=== PATIENT | male | born 1970 | race Caucasian/White ===

== ENCOUNTER → 2024-02-03 06:32 | Day surgery (SDC) | payer OTHER, SELFPAY | LOC: GI 06:32 | PROVIDERS: ATTENDING PHYSICIAN Internal Medicine Gastroenterology | DX: Z12.11 Encounter for screening for malignant neoplasm of colon (principal); K57.30 Diverticulosis of large intestine without perforation or abscess without bleeding; K64.8 Other hemorrhoids; K21.00 Gastro-esophageal reflux disease with esophagitis, without bleeding; R12 Heartburn; Z94.0 Kidney transplant status | CPT/HCPCS: 43239; G0121; 88305 ==

== ENCOUNTER 2025-06-24 02:04 | Inpatient (IN) | payer OTHER, SELFPAY ==
[2025-06-23 20:46] VITALS: BP 136/82; BMI 27.7
[2025-06-23 20:47] VITALS: BP 136/82
[2025-06-23 21:21] LABS: Urine Character Clear (Clear)
[2025-06-23 21:25] LABS: Hematocrit 47.5 % (39.0-52.0); Hemoglobin 16.5 g/dL (13.0-18.0); Mean Corp Hgb Conc. 34.7 g/dL (33.0-37.0); Mean Corpuscular Volume 87.5 fL (80.0-94.0); Nucleated Red Blood Cells % 0 % (-); Platelet Count 133 10^3/uL (130-400); Red Cell Dist. Width 13.2 % (11.5-14.5)
[2025-06-23 21:27] LABS: Urine Squamous Cell 0-2 /LPF (Few)
[2025-06-23 21:28] LABS: Urine Red Blood Cell 0-2 /HPF (0-2); Urine White Cell 50-60 /HPF (0-5)
[2025-06-23 21:30] LABS: COVID-19 Antigen Negative (Negative)
[2025-06-23 21:37] LABS: ALT (SGPT) 33 U/L (0-50); AST (SGOT) 24 U/L (17-59); Albumin 4.6 g/dl (3.5-5.0); Alkaline Phosphatase 66 U/L (38-126); Blood Urea Nitrogen 17 mg/dl (9-20); Calcium 10.0 mg/dl (8.4-10.2); Carbon Dioxide 26 mmol/L (22-30); Chloride 99 mmol/L (98-107); Estimated Creatinine Clearance 70 ml/min; Glucose 126 mg/dl (70-99); Potassium 4.1 mmol/L (3.5-5.1); Sodium 133 mmol/L (135-145); Total Protein 7.1 g/dl (6.3-8.2); eGFR > 60.00
[2025-06-23 22:00] VITALS: BP 123/63
[2025-06-23] MEDS: NSS 1000 IV (22:03)
[2025-06-23] MEDS: ZOFRAN 4 MG IV (22:03)
[2025-06-23] MEDS: MAXIPIME 2000 MG IV (22:06)
[2025-06-23 23:00] VITALS: BP 130/73
--- NOTE | 2025-06-23 23:47 | ED.GENMED ---
History of Present Illness
General
Chief Complaint: Fever
Source: patient and spouse
Time Seen by Provider: 06/23/25 20:58
History of Present Illness
History of Present Illness:
Note:
CHIEF COMPLAINT(S)
Nausea, chills, fever, painful urination.
HISTORY OF PRESENT ILLNESS
The patient is a 55-year-old male with a history of kidney transplant performed 10 years ago at [facility] and currently on immunosuppressive therapy with tacrolimus, mycophenolate, and prednisone. He presents with nausea, chills, fever, and painful
urination that began last night. The patient reported measuring a fever of up to 102�F at home. He has been experiencing nausea upon drinking fluids and has not urinated much today due to limited fluid intake. He denies any previous history of
urinary tract infections, kidney stones, or penile discharge. He also reports not taking his morning dose of tacrolimus and having taken acetaminophen at 6:30 AM for fever management. He is on immunosuppressants, raising the concern for severe
infection or complications.
PAST MEDICAL AND SURGICAL HISTORY
Kidney transplant 10 years ago for polycystic kidney disease.
CHRONIC MEDICAL CONDITIONS SIGNIFICANTLY AFFECTING CARE
1. History of kidney transplant.
2. Currently on immunosuppressive therapy.
MEDICATIONS
1. Tacrolimus
2. Mycophenolate
3. Prednisone
REVIEW OF SYSTEMS
- General: Chills, fever up to 102�F.
- Genitourinary: Painful urination.
- Gastrointestinal: Nausea when drinking fluids.
PHYSICAL EXAM
General: Appears ill, febrile.
Skin: Warm, dry.
Head: Normocephalic, atraumatic.
Neck: Supple, trachea midline.
Eyes, Ears, Nose, Mouth and Throat: Oral mucosa moist.
Cardiovascular: Regular heart rate, no murmurs.
Respiratory: Lungs clear, respirations are non-labored.
Gastrointestinal: Abdomen soft, non-tender.
Back: No costovertebral angle tenderness.
Musculoskeletal: Normal range of motion, normal strength.
Neurological: Alert and oriented to person, place, time, and situation. No focal neurological deficit observed.
Psychiatric: Cooperative, appropriate mood & affect.
Genitourinary: Uncircumcised male, testicles non-tender.
PROBLEM LIST
- Acute Problems:
- Urinary tract infection with suspected ascending infection.
- Fever and chills.
- Nausea.
- Chronic Problems:
- History of kidney transplant.
- Immunosuppressive therapy management.
PLAN
1. Admission to the hospital for further evaluation and management given immunosuppression and potential ascension of urinary infection.
2. Initiate intravenous fluids for hydration and fever management.
3. Administer intravenous antibiotics targeting suspected urinary infection, avoiding ciprofloxacin due to renal concerns; consider a cephalosporin.
4. Obtain blood and urine cultures to determine the causative organism.
5. Provide medication for nausea control.
6. Monitor vital signs and reassess clinical status regularly.
DIFFERENTIAL DIAGNOSIS
The Differential Diagnosis includes, in no particular order and is not limited to:
1. Pyelonephritis
2. Urinary Tract Infection (UTI)
3. Prostatitis
4. Acute they interest interest oritis
5. Cystitis
6. Sepsis secondary to urinary source
7. Drug-induced fever
8. Renal abscess
9. Polycystic kidney disease complications
10. Non-infectious kidney transplant rejection
Disposition:
SUMMARY OF ENCOUNTER
A 55-year-old male with a history of kidney transplant from 10 years ago presented to the emergency department with fever and painful urination. Initial workup revealed a urinary tract infection, confirmed by urine analysis showing positive
nitrites, 50-60 WBCs, and numerous bacteria. His initial white blood cell count was elevated at 13.6 with 86% neutrophils indicating a bacterial infection. Chemistries and LFTs were within normal limits; lactic acid was also normal. Imaging of the
abdomen and pelvis identified polycystic kidneys with a mild dilation of the right ureter and elizabeth-ureteral fat stranding, consistent with a urinary tract infection. IV fluids and antibiotics were administered, resulting in some clinical
improvement. Cefepime was given as IV antibiotics.
DISPOSITION
Admit
ASSESSMENT
Urinary tract infection with possible ascending infection, considering the patients history of kidney transplant and current immunosuppressive therapy.
EMERGENCY TREATMENTS ADMINISTERED
Intravenous fluids and Cefepime
PLAN
1. Admit to hospital for further evaluation and management due to immunosuppression and potential complications from the urinary infection. 2. Continue intravenous antibiotics to treat the urinary tract infection. 3. Monitor clinical progression,
vital signs, and laboratory markers closely to assess response to treatment. 4. Obtain blood and urine cultures to identify the causative organism and tailor antibiotic therapy appropriately upon identification.
INDEPENDENT REVIEW OF LABS AND INTERPRETATION OF TESTS
My independent review of the CBC indicates leukocytosis at 13.6 with a left shift of 86% neutrophils.
My independent review of the urinalysis shows positive nitrites and 50-60 white blood cells, suggesting urinary tract infection.
My independent interpretation of the CT abdomen and pelvis reveals polycystic koi kidneys with a right lower quadrant transplanted kidney, mildly dilated right ureter, and elizabeth-ureteral fat stranding, likely related to the urinary tract
infection. No obstruction or nephrolithiasis was present.
MEDICAL DECISION MAKING
- Number and Complexity of Problems Addressed: Chronic conditions affecting care include a history of kidney transplant and immunosuppressive therapy management. Differential diagnosis includes urinary tract infection, pyelonephritis, prostatitis,
cystitis, sepsis secondary to urinary source, renal abscess, complications from polycystic kidney disease, and non-infectious kidney transplant rejection.
- Data:
- Category 1: Reviewed CBC indicating elevated white blood cell count. Reviewed urinalysis showing signs of urinary tract infection. Independently interpreted CT abdomen and pelvis.
- Category 3: Discussion of management with hospitalist upon admission regarding the continuation of care and monitoring in light of the patient�s complex medical history and current immunosuppressed state.
- Risk: Prescription drug management involving intravenous antibiotics and monitoring for potential severe infection given the patients immunosuppressed status. Decisions to escalate care through hospital admission due to complexity and potential
severity of the urinary tract infection in the context of the patients kidney transplant history.
DIAGNOSIS
N39.0 - Urinary tract infection, site not specified.
Kidney transplant
Past History
Past History
ED Past Medical History: GERD, HTN, Renal failure (Polycystic kidney disease, renal transplant January 2015.), Other (COVID-15 July 2020) and Other (polycystic kidney)
ED Past Surgical History: Cholecystectomy and Other (txp kidney)
Social History
Tobacco: Former smoker
Alcohol: None
Drug: None
Personal:
Living: with family
Employment: Employed
Family History
Family History: Other (polycystic kidney)
Phy Exam
Physical Exam
Physical Exam:
.
Course
Orders/Labs/Results
Orders:
Orders
06/23/25 20:48
EKG [Electrocardiogram (*1)] Urgent
Reason for Study: Tachycardia
EKG- Treatment ONCE
06/23/25 21:01
COVID-19 Antigen Urgent
Source: Nasal Swab
Complete Blood Count/With Diff Urgent
Comprehensive Metabolic Panel Urgent
Lactic Acid Urgent
Urinalysis Reflex To Culture Urgent
Date Specimen was Collected: 06/23/25
Time Specimen was Collected: 20:59
Urine Microscopic Reflex Cult Urgent
Blood Culture Routine
MARY KAY Source: Blood/Venous
Specimen Description:
Blood Culture Urgent
MARY KAY Source: Blood/Venous
Specimen Description:
Influenza A+B Rapid Molecular Urgent
MARY KAY Source: Nasal Swab
Specimen Description:
Urine Culture Urgent
MARY KAY Source: U
Specimen Description:
Date Specimen was Collected: 06/23/25
Time Specimen was Collected: 20:59
06/23/25 21:35
0.9% Sodium Chloride 1000 ml [Nss] 1,000 ml IV BOLUS
06/23/25 21:47
Cefepime HCl [Maxipime] 2,000 mg IV NOW STA
06/23/25 21:53
CT Abd/pel Without Iv Or Oral Urgent
Comment:
Reason For Exam: back pain, UTI, h/o kidney transplant
06/23/25 21:55
Ondansetron Injectable [Zofran] 4 mg IV NOW STA
06/23/25 23:59
Morphine Sulfate 4 mg IV NOW STA
Ondansetron Injectable [Zofran] 4 mg IV NOW STA
06/24/25 00:15
0.9% Sodium Chloride 1000 ml [Nss] 1,000 ml IV 125 mls/hr
Abnormal Lab Results
06/23/25
21:01
WBC 13.6 H 10^3/uL
(4.8-10.8)
MPV 10.9 H fL
(7.4-10.4)
Abs Immat Gran (auto) 0.1 H 10^3/uL
(0-0.05)
Absolute Neuts (auto) 11.6 H 10^3/uL
(1.4-6.5)
Absolute Lymphs (auto) 0.7 L 10^3/uL
(1.2-3.4)
Absolute Monos (auto) 1.1 H 10^3/uL
(0.1-0.6)
Neutrophils % 86.0 H %
(42.2-75.2)
Lymphocytes % 5.3 L %
(20.5-51.1)
Sodium 133 L mmol/L
(135-145)
Glucose 126 H mg/dl
(70-99)
Total Bilirubin 1.4 H mg/dl
(0.2-1.3)
Ur Occult Blood Reflex 3+ A
(Negative)
Urine Nitrite (Reflex) Positive A
(Negative)
Leukocyte Esterase Rfl 1+ A
(Negative)
Urine WBC (Reflex) 50-60 A /HPF
(0-5)
Urine Bacteria (Reflex) Many A
(Negative)
Urine Albumin (Reflex) 2+ A
(Neg - Trace)
06/23/25 21:01
06/23/25 21:01
Vital Signs
Initial and Last Documented VS:
Initial Vital Signs
Temp Pulse Resp BP Pulse Ox
101.2 F H 94 21 136/82 94
06/23/25 20:46 06/23/25 20:46 06/23/25 20:46 06/23/25 20:46 06/23/25 20:46
Last Documented Vital Signs
Temp Pulse Resp BP Pulse Ox
100.2 F 89 19 123/63 92
06/23/25 22:53 06/23/25 22:50 06/23/25 21:45 06/23/25 22:00 06/23/25 23:53
*Pulse Oximetry
SaO2: 92
Oxygen Mode of Delivery: Room air
Patient hypoxic: yes (Mild)
*[employer] Consultant Interpretation
Rate: normal
Interpretation: normal
Rhythm: sinus
*Critical Care Note
Total Time (30-74mins, 75-104mins- exclusive of procedures): 30 minutes
Update Note
Update Note:
Patient feels a little bit better but continues to have some low back pain. Again febrile but only able to take Tylenol. Will redose Tylenol at this point as he took it at home shortly before ED visit at 6:30 PM. Morphine ordered. Blood pressure
and heart rate okay
ED Attending Note
-
Portions of this chart may have been created with voice recognition software.� Occasional wrong word or��sound alike� substitutions may have occurred due to the inherent limitations of voice recognition software.
Discharge Plan
Departure
Patient Disposition: Admit
Date of Disposition: 06/23/25
Time of Disposition: 23:48
Admit to: Telemetry
Presentation/result/management discussed w/ accepting MD/DO: Hospitalist
Discharge Problem:
Acute UTI, Kidney transplanted
Prescriptions:
No Action
atorvastatin 10 MG tablet
40 mg PO HS
metoprolol tartrate 100 MG tablet
50 mg PO BID
prednisone 5 MG tablet
5 mg PO DAILY
amlodipine 10 MG tablet
10 mg PO DAILY
aspirin 81 MG tablet,chewable
81 mg PO DAILY
tacrolimus 1 MG capsule
1 mg PO BID
mycophenolate mofetil 250 mg Capsule
500 mg PO Q12H
Referrals:
UNKNOWN - PT NOT,INTERVIEWE [Family Provider]
Interventions
Interventions:
*Risk Screen - Suicide Last Done: 06/23/25 20:46
*General Assessment Last Done: 06/23/25 20:46
*Neglect/Abuse Screening Last Done: 06/23/25 20:46
*ED- Fall Risk Assessment Last Done: 06/23/25 20:46
*ED COVID-19 Vaccine History Last Done: 06/23/25 20:46
*ED Influenza Vaccine History Last Done: 06/23/25 20:46
ED- Neurological Assessment Last Done: 06/23/25 20:53
ED-Skin Assessment Last Done: 06/23/25 20:53
Discharge Date and Time
Print Language: TUNISIAN
[2025-06-24] VITALS (8 sets, daily range): BP systolic 107–137; BP diastolic 49–76; BMI 26.8
[2025-06-24] MEDS: MORPHINE SULFATE 4 MG IV (00:07)
[2025-06-24] MEDS: ZOFRAN 4 MG IV ×2 (00:07→21:58)
[2025-06-24] MEDS: TYLENOL 1000 MG PO (00:15)
[2025-06-24] MEDS: NSS 1000 IV ×4 (00:16→19:49)
--- NOTE | 2025-06-24 01:50 | HPS.HSE ---
Family Physician
-
Family Physician: INTERVIEWE UNKNOWN - PT NOT
Chief Complaint
-
Fever / Chills
History of Present Illness
Patient is a 55y M with PMH significant for polycystic kidney disease s/p renal transplant who presents to ED complaining of fevers and chills. Patient states that he woke around 2 AM today with shaking chills. He has had persistent symptoms
throughout the day which include lower back pain, diffuse muscle aches and 'foggy head' / confusion. He notes some dysuria this evening. N/V x 1 here in the ED. No sore throat or cough. No diarrhea.
No known sick contacts.
No recent changes in medications.
Medical History
Past Medical History
Past Medical History: Reports Other
Additional Past Medical History:
Polycystic Kidney Disease
Hypertension
GERD
Past Surgical History: Reports Other
Additional Past Surgical History:
Renal Transplant (2015 at [facility])
Cholecystectomy
Left Inguinal Hernia Repair
Social History
Tobacco: Former Smoker (Quit smoking 15 years ago.)
Alcohol: Occasional
Drug: None
Family History
Family History: Not pertinent
Allergies / Home Medications
Allergies reflects when Allergies were last updated in [employer].
Home Medications with original date entered in [employer]
Allergy/Medication List:
Allergies
Allergy/AdvReac Type Severity Reaction Status Date / Time
No Known Allergies Allergy Verified 06/23/25 20:52
Home Medications
amlodipine 10 mg tablet 10 mg PO DAILY 04/01/16
aspirin 81 mg chewable tablet 81 mg PO DAILY 04/01/16
atorvastatin 10 mg tablet 40 mg PO HS 04/01/16
metoprolol tartrate 100 mg tablet 50 mg PO BID 04/01/16
prednisone 5 mg tablet 5 mg PO DAILY 04/01/16
tacrolimus 1 mg capsule, immediate-release 1 mg PO BID 04/01/16
mycophenolate mofetil 250 mg capsule 500 mg PO Q12H 06/23/25
Review of Systems
-
History Source: Patient
A 12 point ROS was completed and negative except as noted: Yes
Constitutional: Reports Fever, Fatigue and Chills
EENT: Denies Sore Throat
Respiratory: Denies Cough or Trouble Breathing
Cardiac: Denies Chest Pain or Palpitations
Abdomen/GI: Reports Nausea and Vomiting; Denies Abdominal Pain, Diarrhea, Bloody Stools or Black Stools
: Reports Dysuria; Denies Frequency or Flank Pain
Musculoskeletal: Reports Muscle Pain; Denies Joint Pain
Neurological: Reports Headache; Denies Dizzy
Psych: Denies Depression or Anxiety
Physical Exam
Vital Signs
Vital Signs
Temp Pulse Resp BP Pulse Ox
98.6 F 84 29 130/73 91
06/24/25 01:29 06/24/25 01:00 06/24/25 01:00 06/23/25 23:00 06/24/25 01:00
Physical Exam
General: Other (Ill-appearing 55y M. Tactile fever.)
HEENT: Other (Dry MM. Neck supple.)
Respiratory: Clear; No Wheezes, Rales or Rhonchi
Cardiac: S1/S2 and Regular Rhythm; No Murmur
GI: Soft, Non Tender, Non Distended and Normal Bowel Sounds
Musculoskeletal: No Clubbing, No Cyanosis and No Edema
Neuro: AO x 3
Laboratory Results
-
06/23/25 21:01
06/23/25 21:01
Laboratory Results
Lactic Acid 1.2 mmol/L (0.7-2.0) 06/23/25 21:01
Total Bilirubin 1.4 mg/dl (0.2-1.3) H 06/23/25 21:01
AST 24 U/L (17-59) 06/23/25 21:01
ALT 33 U/L (0-50) 06/23/25 21:01
Alkaline Phosphatase 66 U/L (38-126) 06/23/25 21:01
Impression/Plan
-
A/P: Patient is a 55y M with PMH significant for hypertension and renal transplant who presents to ED complaining of fevers and chills that started early this AM.
Pyelonephritis
Immunocompromised State
- Admit for further evaluation and treatment.
- CT done in the ED shows mild R hydro and periureteral stranding. No evidence of stone / obstruction.
- Continue IV cefepime pending culture data.
- IVF support, antipyretics, etc.
- Follow for clinical improvement.
s/p Renal Transplant
- Followed at [facility].
- SCr is at baseline at present.
- Hold CellCept acutely and continue other usual antirejection medications.
- Treat ascending urinary infection as noted above.
- Nephrology evaluation.
Benign Hypertension
- Hold amlodipine acutely.
- Holding parameters for metoprolol to avoid hypotension.
GERD
- H2-piper BID.
DVT Prophylaxis: Lovenox
Code Status: Full
[2025-06-24] MEDS: TYLENOL 650 MG PO ×3 (03:30→15:54)
[2025-06-24] MEDS: STERILE WATER FOR INJECTION 10 ML IV ×4 (03:32→21:46)
[2025-06-24] MEDS: MAXIPIME 1000 MG IV ×4 (03:32→21:46)
[2025-06-24] MEDS: MORPHINE SULFATE 2 MG IV ×3 (04:45→19:59)
--- NOTE | 2025-06-24 04:59 | PTCARENOTE ---
Addendum entered by Mayito Will RN 06/24/25 05:57:
Temp rechecked at 0520. Temp of 102.1. POURED PIPE MAKER notified. No new orders at this time. Patient is sleeping and reports decrease in pain-See MAR.
Original Note:
Pt arrived to unit from ED at 0250. Pt ambulated to bed w/o assist-steady gait with hunched posture. Pt endorses pain at rest and with ambulation. See MAR. Temp of 101.9-See MAR. IVF maintained & IV Abx. VSS. Pt and family made aware on POC and are
agreeable at this time. Pt notified to arnold for assistance with ambulation. POURED PIPE MAKER notified regarding pain management-See MAR. Bed in lowest position and locked, call gooden within reach, pt has no further concerns at this time.
[2025-06-24 06:43] LABS: Hematocrit 43.3 % (39.0-52.0); Hemoglobin 15.1 g/dL (13.0-18.0); Mean Corp Hgb Conc. 34.9 g/dL (33.0-37.0); Mean Corpuscular Volume 88.9 fL (80.0-94.0); Platelet Count 110 10^3/uL (130-400); Red Cell Dist. Width 13.2 % (11.5-14.5)
[2025-06-24 07:08] LABS: Blood Urea Nitrogen 16 mg/dl (9-20); Calcium 9.0 mg/dl (8.4-10.2); Carbon Dioxide 23 mmol/L (22-30); Chloride 103 mmol/L (98-107); Estimated Creatinine Clearance 79 ml/min; Glucose 151 mg/dl (70-99); Potassium 4.1 mmol/L (3.5-5.1); Sodium 130 mmol/L (135-145); eGFR > 60.00
[2025-06-24] MEDS: PROGRAF 1 MG PO ×2 (08:00→19:48)
[2025-06-24] MEDS: DELTASONE 5 MG PO (08:00)
[2025-06-24] MEDS: LOW STRENGTH ASPIRIN 81 MG PO (08:00)
[2025-06-24] MEDS: PEPCID PO (08:02)
[2025-06-24] MEDS: LOPRESSOR 50 MG PO ×2 (08:41→19:48)
--- NOTE | 2025-06-24 10:48 | W.CON.NEPH ---
Consultation
-
Date/Time Consultation Requested: 06/24/2025 7 AM
Date/Time Consultation Performed: 06/24/2025 10 AM
Requesting Provider: Dr. Lares
Performing Provider: Dr. Sawant
Reason for Consultation: Hyponatremia
Medical History
-
Chief Complaint: Fever
History of Present Illness:
This is a 55-year-old gentleman who has hypertension typically controlled with a multidrug regimen, hyperlipidemia controlled on statin therapy, polycystic kidney disease with renal transplant 2014 at [facility]. He is maintained on a
triple drug regimen for immunosuppression.
He was admitted because of development of fever and chills as well as back pain and myalgias. When he came to the emergency room he had nausea and vomiting. His creatinine was 1.2 with a sodium level of 133. CT scan of the abdomen and pelvis
without intravenous contrast suggested perinephric stranding in the right transplant kidney. He did also report some dysuria yesterday though none today. He also reports malodorous urine.
Past Medical History
AD Polycystic Kidney Disease
Hypertension
GERD
Renal Transplant (01/2015 at [place]) BRETT, RLQ
Cholecystectomy
Left Inguinal Hernia Repair
Social History
Tobacco: Former Smoker
Alcohol: Occasional
Family History
ADPKD with renal transplant
Allergies / Home Medications
Allergy/AdvReac Type Severity Reaction Status Date / Time
No Known Allergies Allergy Verified 06/23/25 20:52
�Medication �Instructions �Recorded �Confirmed �Type
amlodipine 10 mg tablet 10 mg PO DAILY 04/01/16 06/23/25 History
aspirin 81 mg chewable tablet 81 mg PO DAILY 04/01/16 06/23/25 History
atorvastatin 10 mg tablet 40 mg PO HS 04/01/16 06/23/25 History
metoprolol tartrate 100 mg tablet 50 mg PO BID 04/01/16 06/23/25 History
prednisone 5 mg tablet 5 mg PO DAILY 04/01/16 06/23/25 History
tacrolimus 1 mg capsule, 1 mg PO BID 04/01/16 06/23/25 History
immediate-release
mycophenolate mofetil 250 mg 500 mg PO Q12H 06/23/25 06/23/25 History
capsule
Review of Systems
-
Fatigue nausea vomiting fever chills dysuria. No diarrhea. No chest pain or shortness of breath. No orthostasis.
Physical Exam
Vital Signs
Vital Signs
Temp Pulse Resp BP Pulse Ox
99.7 F 83 16 111/71 91
06/24/25 07:31 06/24/25 07:31 06/24/25 07:31 06/24/25 07:31 06/24/25 07:31
Lab Results
WBC 16.6 10^3/uL (4.8-10.8) H 06/24/25 06:16
RBC 4.87 10^6/uL (4.70-6.10) 06/24/25 06:16
Hgb 15.1 g/dL (13.0-18.0) 06/24/25 06:16
Hct 43.3 % (39.0-52.0) 06/24/25 06:16
Plt Count 110 10^3/uL (130-400) L 06/24/25 06:16
Sodium 130 mmol/L (135-145) L 06/24/25 06:16
Potassium 4.1 mmol/L (3.5-5.1) 06/24/25 06:16
Chloride 103 mmol/L (98-107) 06/24/25 06:16
Carbon Dioxide 23 mmol/L (22-30) 06/24/25 06:16
BUN 16 mg/dl (9-20) 06/24/25 06:16
Creatinine 1.1 mg/dL (0.7-1.3) 06/24/25 06:16
eGFR > 60.00 06/24/25 06:16
Glucose 151 mg/dl (70-99) H 06/24/25 06:16
Calcium 9.0 mg/dl (8.4-10.2) 06/24/25 06:16
Albumin 4.6 g/dl (3.5-5.0) 06/23/25 21:01
Baseline creatinine May 2025 according to patient 1.2
Last tacrolimus level according to patient [address] abdomen pelvis without contrast 06/23/2025
IMPRESSION:
1. Findings consistent with autosomal dominant polycystic kidney disease.
2. Right lower quadrant transplant kidney. There is mild fat stranding adjacent to the proximal ureter, which may be related to ascending urinary tract infection. No significant hydronephrosis of the transplanted kidney, and no perinephric fluid
collection.
3. Severe diffuse fatty infiltration of the liver.
Physical Exam
Patient is awake alert oriented and in no distress. Mood and affect were pleasant, insight and judgment were good. Pupils are equal round and reactive to light, extraocular movements are intact, sclera were anicteric. Hearing was normal, ears and
nose are intact. Oropharynx was clear. Neck was supple with trachea midline and no thyromegaly. Heart was regular rate and rhythm without rubs. Lower extremities without edema. Lungs were clear to auscultation bilaterally and with normal
excursion. Abdomen was soft, nontender, with normal active bowel sounds, and no hepatosplenomegaly. Skin was without rash and with normal turgor. No transplant tenderness in the right lower quadrant
Data Reviewed
-
Radiology: Image Personally Visualized and interpreted (Chest x-ray 06/16/2025 by my reading no acute disease low lung volume)
CT Scan: Report Reviewed by me
Medical Tests (Nuc Med, Echo etc): Image Personally Visualized and interpreted (EKG 06/23/2025 by reading normal sinus rhythm nonspecific T wave abnormality)
Labs: Labs Reviewed by me
Old Records: Reviewed
Assessment/Plan
-
Assessment
Living unrelated renal transplant January 2025 [facility] right lower quadrant [id number], baseline 1.2
UTI, possible evolving pyelonephritis of transplant kidney
Hypertension
Hyperlipidemia
Plan
Continue all immunosuppressants
Broad-spectrum antibiotics for urinary infection
Check tacrolimus level in the morning
Follow BMP
Reduce IV fluid rate
Await culture results
--- NOTE | 2025-06-24 11:20 | CM ---
chart reviewed. Spoke with patient and his son at bedside
Lives in [address] with 2 JOSE M
Independent Working from home
no DME
PCP Donnie Hogue
RX plan yes
Pharmacy [facility]
no hx of VN nor SNF
DCP is to go home with no needs
or son can drive him home
CM will continue to follow up for any dcp needs
[2025-06-24] MEDS: CELLCEPT 500 MG PO ×2 (11:49→19:47)
--- NOTE | 2025-06-24 11:56 | W.PN.UPDATE ---
Update Note
Progress Note Update
NAD
Scleral Anicteric
MMM
No JVD
CTABL
RRR, S1/S2
Soft, NT, ND, BS+
CVA tenderness
Warm, Dry
AAOx3
Calm
Pyelo with known hx of renal transplant
Check renal transplant ultrasound
IVAtb with cefepime
Bcx and Ucx follow up
IVF
Analgesics
ID consult
Nephrology consult
-Continue immunosuppresive
--Neph resume cellcept
--Tac level ordered prior to next AM dose though send out
S/p Renal transplant
Follow with [facility] transplant
Continue cellcept/tac and pred
Neph consulted
Transplant ultrasound ordered
HTN
Currently normotensivem off of BP meds
GERD
Pepcid
--- NOTE | 2025-06-24 13:57 | CON.ID ---
Consultation
-
Date/Time Consultation Requested: 06/24/2025 0850
Date/Time Consultation Performed: 06/24/2025 1357
Requesting Provider: Dr. Hawkins
Performing Provider: Dr. Ortiz
Reason for Consultation: Complicated urinary tract infection
Chief Complaint / Past History
History of Present Illness
David Bowden is a 55-year-old man being evaluated at request of Dr. Hawkins in regards to a complicated urinary tract infection. History is obtained from chart review, along with patient interview.
At the patient has a significant past medical history of polycystic kidney disease s/p renal transplant (2014) who presented to [facility] yesterday secondary to fevers and chills. He reports that he felt well 2 days ago, but earlier on the
day of the admission he woke up with shaking chills, with subsequent development of fevers. He had associated symptoms that included lower back pain, myalgia and reported confusion. He also admits to some dysuria. In the ER he developed nausea
and vomiting. Workup in the emergency room revealed leukocytosis, and fevers to 102.8 degrees. He has been started on empiric antibiotics, and Infectious Diseases assessed, and upon further antimicrobial management.
Patient reports no prior history of urinary tract infections. At this point, he notes feeling somewhat improved from initial presentation although he still feels weak and notes ongoing fever. He denies any sick contacts. No history of recent
travel. No pets.
Past History
Additional Past Medical History:
Polycystic kidney disease
HTN
GERD
Additional Past Surgical History:
Renal transplant (2015; [facility])
Cholecystectomy
Left inguinal hernia repair
Allergy History:
No Known Allergies Allergy (Verified 06/23/25 20:52)
Medications Reviewed: Yes
Current Antibiotics:
Cefepime 1 gm IV q.6 hours
Social History
Tobacco: Former Smoker
Alcohol: Occasional
Drug: None
Review of Systems
Vital Signs
Temp Pulse Resp BP Pulse Ox
100.4 F H 84 16 125/69 92
06/24/25 11:13 06/24/25 11:13 06/24/25 11:13 06/24/25 11:13 06/24/25 11:13
Physical Exam
Physical Exam
Constitutional: No Acute Distress, Comfortable and Non-toxic
Eyes: No Conjunctival Hemorrhage and Sclera Anicteric
Cardiovascular: S1/S2; Negative S3/S4
Pulmonary: Non Labored
Gastrointestinal: Soft, Non Tender, Non Distended, No Rebound and Other (No tenderness over transplant)
Extremities: Negative Edema, Clubbing, Cyanosis or Splinter Hemorrhage
Skin: Warm and Dry; Negative Rash or Jaundice
Neurological: Awake, Alert and Oriented
Psychological: Calm
Lab / Diagnostic Study Results
06/24/25 06:16
06/24/25 06:16
Abs Immat Gran (auto) 0.1 10^3/uL (0-0.05) H 06/23/25 21:01
Absolute Neuts (auto) 11.6 10^3/uL (1.4-6.5) H 06/23/25 21:01
Absolute Lymphs (auto) 0.7 10^3/uL (1.2-3.4) L 06/23/25 21:01
Absolute Monos (auto) 1.1 10^3/uL (0.1-0.6) H 06/23/25 21:01
Absolute Basos (auto) 0.0 10^3/uL (0-0.2) 06/23/25 21:01
Immature Gran % 0.4 % (0-0.5) 06/23/25 21:01
Neutrophils % 86.0 % (42.2-75.2) H 06/23/25 21:01
Lymphocytes % 5.3 % (20.5-51.1) L 06/23/25 21:01
Monocytes % 8.1 % (1.7-9.3) 06/23/25 21:01
Eosinophils % 0.0 % (0-6) 06/23/25 21:
Basophils % 0.2 % (0-2) 06/23/25 21:01
Lactic Acid 1.2 mmol/L (0.7-2.0) 06/23/25 21:01
Ur Squamous Epith Cells 0-2 /LPF (Few) 06/23/25 21:01
Microbiology Results
Micro:
06/23/25 21:01 Influenza Types A & B (JESSICA) - Final
Nasal Swab Negative for Influenza A & B, NAAT
Negative results must be combined with clinical observations
and patient history.
Nucleic Acid Amplification test (NAAT)performed on the
[employer] platform.
06/23/25 21: Urine Culture - Pending
Urine
06/23/25 21: Blood Culture - Pending
Blood/Venous
06/23/25 21: Blood Culture - Pending
Blood/Venous
Imaging:
06/24/2025 Renal ultrasound: right pelvic renal transplant measuring 13.7 x 7.2 x 6.8. No shadowing calculus or hydronephrosis. No perinephric fluid.
06/23/2025 CT abdomen/pelvis without contrast: findings consistent with autosomal dominant polycystic kidney disease. Right lower quadrant transplanted kidney noted. Mild fat stranding adjacent to proximal ureter which may be related to ascending
urinary tract infection. No significant hydronephrosis of the transplanted kidney and no perinephric fluid collection noted.
Assessment / Plan
Transplant associated urinary tract infection
Suspected transplant pyelonephritis
Fever
Leukocytosis
Immunosuppression secondary to meds (tacrolimus, mycophenolate)
Polycystic kidney disease
HTN
GERD
Recommendations:
Continue current empiric antibiotic coverage (cefepime).
Await urine cultures to guide further antimicrobial selection and potential de-escalation.
Monitor temperature curve; fever resolution may lag appropriate treatment by several days.
Follow white count.
Further recommendations as additional data is returned.
[2025-06-24] MEDS: LOVENOX 40 MG SC (17:27)
[2025-06-24] MEDS: PEPCID 20 MG PO (19:49)
[2025-06-24] MEDS: FLUSH (NSS) 2 FLUSH IV (21:47)
[2025-06-25] MEDS: TYLENOL 650 MG PO ×4 (00:40→20:19)
[2025-06-25 02:53] VITALS: BP 120/68
[2025-06-25] MEDS: FLUSH (NSS) 2 FLUSH IV (03:47)
[2025-06-25] MEDS: STERILE WATER FOR INJECTION 10 ML IV ×4 (03:47→21:29)
[2025-06-25] MEDS: MAXIPIME 1000 MG IV ×4 (03:47→21:29)
[2025-06-25 07:36] LABS: Blood Urea Nitrogen 17 mg/dl (9-20); Calcium 8.5 mg/dl (8.4-10.2); Carbon Dioxide 24 mmol/L (22-30); Chloride 104 mmol/L (98-107); Estimated Creatinine Clearance 72 ml/min; Glucose 137 mg/dl (70-99); Potassium 4.4 mmol/L (3.5-5.1); Sodium 133 mmol/L (135-145); eGFR > 60.00
[2025-06-25 07:43] LABS: Hematocrit 41.6 % (39.0-52.0); Hemoglobin 14.4 g/dL (13.0-18.0); Mean Corpuscular Volume 90.0 fL (80.0-94.0)
[2025-06-25 07:44] LABS: Mean Corp Hgb Conc. 34.6 g/dL (33.0-37.0); Platelet Count 99 10^3/uL (130-400); Red Cell Dist. Width 13.2 % (11.5-14.5)
[2025-06-25 08:00] VITALS: BP 119/74
[2025-06-25] MEDS: PROGRAF 1 MG PO ×2 (08:37→19:41)
[2025-06-25] MEDS: CELLCEPT 500 MG PO ×2 (08:38→19:39)
[2025-06-25] MEDS: DELTASONE 5 MG PO (08:38)
[2025-06-25] MEDS: LOW STRENGTH ASPIRIN 81 MG PO (08:38)
[2025-06-25] MEDS: LOPRESSOR 50 MG PO ×2 (08:38→19:39)
[2025-06-25] MEDS: PEPCID 20 MG PO ×2 (08:38→19:41)
[2025-06-25] MEDS: NSS 1000 IV (09:45)
--- NOTE | 2025-06-25 10:05 | W.PN.NEPH.PH ---
Today's Communication / Plan
-
follow BMP
Assessment/Plan
-
Assessment
Living unrelated renal transplant January 2025 [facility] right lower quadrant [id number], baseline 1.2
UTI, possible evolving pyelonephritis of transplant kidney
Hypertension
Hyperlipidemia
Plan
Continue all immunosuppressants
Broad-spectrum antibiotics for urinary infection
await FK
watch platelets, if they fall further will need to hold MMF
Follow BMP
continue IVF
Await culture results
CT head with new Headache. BP good
-
-
Date of Service: June 25, 2025
CC / HPI / ROS
-
Chief Complaint:
renal transplant
History of Present Illness:
Cr stable 1.2
Plt lower at 99
abx for presumed UTI
LEDEZMA this am
no nausea, but vomits after eating. fluid/pills ok
Review of Systems:
no CP/SOB
back pain improved
Labs
-
Labs:
WBC 14.9 10^3/uL (4.8-10.8) H 06/25/25 05:34
RBC 4.62 10^6/uL (4.70-6.10) L 06/25/25 05:34
Hgb 14.4 g/dL (13.0-18.0) 06/25/25 05:34
Hct 41.6 % (39.0-52.0) 06/25/25 05:34
Plt Count 99 10^3/uL (130-400) L 06/25/25 05:34
Sodium 133 mmol/L (135-145) L 06/25/25 05:34
Potassium 4.4 mmol/L (3.5-5.1) 06/25/25 05:34
Chloride 104 mmol/L (98-107) 06/25/25 05:34
Carbon Dioxide 24 mmol/L (22-30) 06/25/25 05:34
BUN 17 mg/dl (9-20) 06/25/25 05:34
Creatinine 1.2 mg/dL (0.7-1.3) 06/25/25 05:34
eGFR > 60.00 06/25/25 05:34
Glucose 137 mg/dl (70-99) H 06/25/25 05:34
Calcium 8.5 mg/dl (8.4-10.2) 06/25/25 05:34
Albumin 4.6 g/dl (3.5-5.0) 06/23/25 21:01
Physical Exam
-
Vital Signs:
Vital Signs
Temp Pulse Resp BP Pulse Ox
97.4 F 73 15 119/74 95
06/25/25 08:00 06/25/25 08:00 06/25/25 08:00 06/25/25 08:00 06/25/25 08:00
Cardiovascular:: Regular rate and rhythm
Respiratory:: Bilateral: Coarse
Lung Excursion:: Normal
Abdomen:: Nontender and Soft
Bowel Sounds:: Normal
Extremity Edema:: None: Bilateral:
--- NOTE | 2025-06-25 10:42 | W.PN.ID1 ---
Date of Service
Date of Service: June 25, 2025
Today's Communication
Continue current antibiotics.
Assessment / Plan
Transplant associated urinary tract infection
Suspected transplant pyelonephritis
Fever
Leukocytosis
Immunosuppression secondary to meds (tacrolimus, mycophenolate)
Polycystic kidney disease
HTN
GERD
Recommendations:
Continue current empiric cefepime
Await urine cultures to guide further antimicrobial selection and potential de-escalation.
Monitor temperature curve; fever resolution may lag appropriate treatment by several days.
Follow white count.
Further recommendations as additional data is returned.
Chief Complaint
-: UTI
Subjective / Review of Systems
Review of Systems: No Fever and No Chills
Vital Signs / Physical Exam
Vital Signs
Vital Signs
Temp Pulse Resp BP Pulse Ox
97.4 F 73 15 119/74 95
06/25/25 08:00 06/25/25 08:00 06/25/25 08:00 06/25/25 08:00 06/25/25 08:00
Physical Exam
Constitutional: No Acute Distress, Comfortable and Non-toxic
Eyes: Sclera Anicteric
Cardiovascular: S1/S2; Negative S3/S4
Pulmonary: Non Labored
Gastrointestinal: Soft and Non Tender
Neurological: Awake and Alert
Objective Data
Lab Data
Lab Results
06/25/25 05:34
06/25/25 05:34
Estimated Creat Clear 72 ml/min 06/25/25 05:34
Lactic Acid 1.2 mmol/L (0.7-2.0) 06/23/25 21:01
Total Bilirubin 1.4 mg/dl (0.2-1.3) H 06/23/25 21:01
AST 24 U/L (17-59) 06/23/25 21:01
ALT 33 U/L (0-50) 06/23/25 21:01
Alkaline Phosphatase 66 U/L (38-126) 06/23/25 21:01
Most recent labs reviewed.
Micro Results:
06/23/25 21:01 Blood Culture - Preliminary
Blood/Venous No Growth in 24 hours- Final report to follow
06/23/25 21:01 Blood Culture - Preliminary
Blood/Venous No Growth in 24 hours- Final report to follow
06/23/25 21:01 Influenza Types A & B (JESSICA) - Final
Nasal Swab Negative for Influenza A & B, NAAT
Negative results must be combined with clinical observations
and patient history.
Nucleic Acid Amplification test (NAAT)performed on the
[employer] platform.
06/23/25 21:01 Urine Culture - Pending
Urine
Imaging:
06/24/2025 Renal ultrasound: right pelvic renal transplant measuring 13.7 x 7.2 x 6.8. No shadowing calculus or hydronephrosis. No perinephric fluid.
06/23/2025 CT abdomen/pelvis without contrast: findings consistent with autosomal dominant polycystic kidney disease. Right lower quadrant transplanted kidney noted. Mild fat stranding adjacent to proximal ureter which may be related to ascending
urinary tract infection. No significant hydronephrosis of the transplanted kidney and no perinephric fluid collection noted.
--- NOTE | 2025-06-25 10:59 | W.PN.HOSP.TC ---
Addendum entered and electronically signed by Adam Hawkins MD 06/25/25 12:15:
Thrombocytopenia
Likely related to acute infection
Will check b12.folate. hep c for completenes
On lovenox, 4t score low, platelet count has not trended down by 30-50% as of yet
-If it does will consider HIT panel
Original Note:
Today's Communication/Plan
-
Assessment / Plan
Assessment / Plan
NAD
Scleral Anicteric
MMM
No JVD
CTABL
RRR, S1/S2
Soft, NT, ND, BS+
CVA tenderness
Warm, Dry
AAOx3
Calm
Pyelo with known hx of renal transplant
IVAtb with cefepime
Bcx and Ucx follow up
IVF
Analgesics
ID rec to continue cefepime
Nephrology consult
-Continue immunosuppresive
--Neph resume cellcept
--Tac level ordered prior to next AM dose though send out
Polycystic kidney disease s/p Renal transplant
Follow with [facility]
Continue cellcept/tac and pred
Neph following
Headache with hx of polycystic kidney disease
Cannot exclude cerebral aneurysm since this is asscoiated with polycystic kdney disease, though les likely and cannot exclude cervicalgia since headache starts from the neck
CTBrain ordered stat
Tylenol
Warm compress
Low dose flexeril - discussed this with nephrology, okay to use, prn for muscle spasm
Check flu/rsv. Covid neg
HTN
Currently normotensive off of BP meds
GERD
Pepcid
Anticipated Discharge: > 48 hours
Subjective/Interval History
-
Date of Service: June 25, 2025
seen and examined. feeling stronger though continues to have ongoing headache with associated nausea. no loss of sensations/ringing in the ears/weakness/ numbness/ tingling/ blurry vision
states headache is constant starts from his neck and radiates up to his forehead. showers and Tylenol usually help with the headache
Objective Data
-
Labs:
Laboratory Results
06/25/25
05:34
WBC 14.9 H
Hgb 14.4
Hct 41.6
Plt Count 99 L
Sodium 133 L
Potassium 4.4
Chloride 104
Carbon Dioxide 24
BUN 17
Creatinine 1.2
Glucose 137 H
Calcium 8.5
Vital Signs:
Vital Signs
Temp Pulse Resp BP Pulse Ox
97.4 F 73 15 119/74 95
06/25/25 08:00 06/25/25 08:00 06/25/25 08:00 06/25/25 08:00 06/25/25 08:00
I&O
06/24/25 06/25/25 06/26/25
06:59 06:59 06:59
Intake Total 786 / 786 1680 / 1680
Balance 786 / 786 1680 / 1680
[2025-06-25 11:55] VITALS: BP 122/78
[2025-06-25] MEDS: FLEXERIL 5 MG PO ×2 (13:11→21:29)
[2025-06-25] MEDS: MORPHINE SULFATE 2 MG IV ×2 (14:40→22:55)
--- NOTE | 2025-06-25 15:28 | PTCARENOTE ---
pt continues with pounding headache rating 7/10 IV Morphine given along with Tylenol without positive effects, poor appetite, offering warm blanket for his neck but refusing it at times, unable to sleep and rest especially at night
[2025-06-25 15:55] VITALS: BP 122/71
[2025-06-25] MEDS: LOVENOX 40 MG SC (17:57)
[2025-06-25 19:13] VITALS: BP 109/57
[2025-06-25 23:41] VITALS: BP 124/68
[2025-06-26] MEDS: NSS 1000 IV (00:19)
[2025-06-26] MEDS: MORPHINE SULFATE 2 MG IV ×2 (03:11→07:30)
[2025-06-26] MEDS: MAXIPIME 1000 MG IV (03:11)
[2025-06-26] MEDS: STERILE WATER FOR INJECTION 10 ML IV (03:11)
[2025-06-26] MEDS: FLUSH (NSS) 2 FLUSH IV (03:12)
[2025-06-26 03:15] VITALS: BP 133/83
[2025-06-26 07:00] VITALS: BP 129/77
[2025-06-26 07:40] LABS: Hematocrit 42.4 % (39.0-52.0); Hemoglobin 14.6 g/dL (13.0-18.0); Mean Corp Hgb Conc. 34.4 g/dL (33.0-37.0); Mean Corpuscular Volume 88.3 fL (80.0-94.0); Platelet Count 114 10^3/uL (130-400); Red Cell Dist. Width 13.3 % (11.5-14.5)
[2025-06-26 07:46] LABS: Blood Urea Nitrogen 15 mg/dl (9-20); Calcium 9.1 mg/dl (8.4-10.2); Carbon Dioxide 26 mmol/L (22-30); Chloride 104 mmol/L (98-107); Estimated Creatinine Clearance 96 ml/min; Glucose 131 mg/dl (70-99); Potassium 4.2 mmol/L (3.5-5.1); Sodium 134 mmol/L (135-145); eGFR > 60.00
[2025-06-26] MEDS: DELTASONE 5 MG PO (08:16)
[2025-06-26] MEDS: PEPCID 20 MG PO (08:16)
[2025-06-26] MEDS: PROGRAF 1 MG PO (08:16)
[2025-06-26] MEDS: LOW STRENGTH ASPIRIN 81 MG PO (08:16)
[2025-06-26] MEDS: CELLCEPT 500 MG PO (08:16)
[2025-06-26] MEDS: LOPRESSOR 50 MG PO (08:16)
[2025-06-26 08:50] LABS: Folate 8.1 ng/ml (2.76-20); Vitamin B12 287 pg/ml (239-931)
[2025-06-26 09:18] LABS: Hepatitis C Antibody Negative (Negative)
--- NOTE | 2025-06-26 10:03 | W.PN.ID1 ---
Date of Service
Date of Service: June 26, 2025
Today's Communication
Continue antibiotics. See below�
Assessment / Plan
Transplant associated urinary tract infection
Suspected transplant pyelonephritis
Fever
Leukocytosis
Immunosuppression secondary to meds (tacrolimus, mycophenolate)
Polycystic kidney disease
HTN
GERD
Recommendations:
Urine cultures with E. coli; sensitivities reviewed.
Narrow to cefazolin 2 gm IV q.8 hours.
At discharge, transition to cephalexin 500 mg p.o. QID, to continue through 07/06/25
����������������������������������������������������������
Chief Complaint
-: UTI
Subjective / Review of Systems
PT seen / examined. C/O headache.
Review of Systems: No Fever, No Chills, No Abdominal Pain and No Dysuria
Vital Signs / Physical Exam
Vital Signs
Vital Signs
Temp Pulse Resp BP Pulse Ox
98.4 F 68 22 129/77 95
06/26/25 07:00 06/26/25 07:00 06/26/25 07:00 06/26/25 07:00 06/26/25 07:00
Physical Exam
Constitutional: No Acute Distress, Comfortable and Non-toxic
Eyes: Sclera Anicteric
Cardiovascular: S1/S2; Negative S3/S4
Pulmonary: Non Labored
Gastrointestinal: Soft and Non Tender
Neurological: Awake and Alert
Objective Data
Lab Data
Lab Results
06/26/25 06:47
06/26/25 06:46
Estimated Creat Clear 96 ml/min 06/26/25 06:46
Lactic Acid 1.2 mmol/L (0.7-2.0) 06/23/25 21:01
Total Bilirubin 1.4 mg/dl (0.2-1.3) H 06/23/25 21:01
AST 24 U/L (17-59) 06/23/25 21:01
ALT 33 U/L (0-50) 06/23/25 21:01
Alkaline Phosphatase 66 U/L (38-126) 06/23/25 21:01
Most recent labs reviewed.
Micro Results:
06/23/25 21: Urine Culture - Final
Urine Escherichia coli
06/23/25 21: Blood Culture - Preliminary
Blood/Venous No Growth in 48 hours- Final report to follow
06/23/25 21: Blood Culture - Preliminary
Blood/Venous No Growth in 48 hours- Final report to follow
06/25/25 12:29 Respiratory Syncytial Virus Ag - Final
Nasal Swab Negative for Respiratory Syncytial Virus.
A false negative result may be obtained with a specimen
collected early in the acute phase. If symptoms persist, a
new specimen should be tested.
06/25/25 11:23 Influenza Types A & B (JESSICA) - Final
Nasal Swab Negative for Influenza A & B, NAAT
Negative results must be combined with clinical observations
and patient history.
Nucleic Acid Amplification test (NAAT)performed on the
[employer] platform.
06/23/25 21:01 Influenza Types A & B (JESSICA) - Final
Nasal Swab Negative for Influenza A & B, NAAT
Negative results must be combined with clinical observations
and patient history.
Nucleic Acid Amplification test (NAAT)performed on the
[employer] NOW platform.
Urine Culture Final 06/23/25
CC: Greater than 100,000 CFU/ML Escherichia coli
Organism 1 Escherichia coli
1. Escherichia coli
M.I.C. RX
--------- ---
Amoxicillin/Potas. Clavulanate <=8/4 S
Ampicillin >16 R
Ampicillin/Sulbactam 16/8 I
Aztreonam <=4 S
Cefazolin <=2 S
Ertapenem <=0.5 S
Ciprofloxacin <=0.25 S
Gentamicin <=2 S
Meropenem <=1 S
Nitrofurantoin-Urine Only <=32 S
Piperacillin/Tazobactam <=8 S
Tetracycline >8 R
Tobramycin <=2 S
Trimethoprim/Sulfamethoxazole <=2/38 S
Imaging:
06/24/2025 Renal ultrasound: right pelvic renal transplant measuring 13.7 x 7.2 x 6.8. No shadowing calculus or hydronephrosis. No perinephric fluid.
06/23/2025 CT abdomen/pelvis without contrast: findings consistent with autosomal dominant polycystic kidney disease. Right lower quadrant transplanted kidney noted. Mild fat stranding adjacent to proximal ureter which may be related to ascending
urinary tract infection. No significant hydronephrosis of the transplanted kidney and no perinephric fluid collection noted.
--- NOTE | 2025-06-26 10:23 | W.PN.NEPH.PH ---
Today's Communication / Plan
-
D5NS
Assessment/Plan
-
Assessment
Living unrelated renal transplant January 2025 [facility] right lower quadrant [id number], baseline 1.2
UTI, possible evolving pyelonephritis of transplant kidney
Hypertension
Hyperlipidemia
Plan
Continue all immunosuppressants
Broad-spectrum antibiotics for urinary infection
await FK
watch platelets, if they fall further will need to hold MMF
Follow BMP
continue IVF add D5
LEDEZMA eval
-
-
Date of Service: June 26, 2025
CC / HPI / ROS
-
Chief Complaint:
renal transplant
History of Present Illness:
Cr stable 0.9
Plt up 114
abx for UTI, E coli
LEDEZMA this am, better than last night
now with nausea vomits after eating. fluid/pills ok
Review of Systems:
no CP/SOB
back pain improved
Labs
-
Labs:
WBC 10.3 10^3/uL (4.8-10.8) 06/26/25 06:47
RBC 4.80 10^6/uL (4.70-6.10) 06/26/25 06:47
Hgb 14.6 g/dL (13.0-18.0) 06/26/25 06:47
Hct 42.4 % (39.0-52.0) 06/26/25 06:47
Plt Count 114 10^3/uL (130-400) L 06/26/25 06:47
Sodium 134 mmol/L (135-145) L 06/26/25 06:46
Potassium 4.2 mmol/L (3.5-5.1) 06/26/25 06:46
Chloride 104 mmol/L (98-107) 06/26/25 06:46
Carbon Dioxide 26 mmol/L (22-30) 06/26/25 06:46
BUN 15 mg/dl (9-20) 06/26/25 06:46
Creatinine 0.9 mg/dL (0.7-1.3) 06/26/25 06:46
eGFR > 60.00 06/26/25 06:46
Glucose 131 mg/dl (70-99) H 06/26/25 06:46
Calcium 9.1 mg/dl (8.4-10.2) 06/26/25 06:46
Albumin 4.6 g/dl (3.5-5.0) 06/23/25 21:01
Physical Exam
-
Vital Signs:
Vital Signs
Temp Pulse Resp BP Pulse Ox
98.4 F 68 22 129/77 95
06/26/25 07:00 06/26/25 07:00 06/26/25 07:00 06/26/25 07:00 06/26/25 07:00
Cardiovascular:: Regular rate and rhythm
Lung Excursion:: Normal
Abdomen:: Nontender and Soft
Bowel Sounds:: Normal
Extremity Edema:: None: Bilateral:
[2025-06-26] MEDS: D5/0.9% SODIUM CHLORIDE 1000 IV (11:05)
[2025-06-26] MEDS: ANCEF 10 IV (11:06)
[2025-06-26] MEDS: MAXIPIME IV (11:11)
[2025-06-26] MEDS: STERILE WATER FOR INJECTION IV (11:11)
--- NOTE | 2025-06-26 11:52 | W.PN.HOSP.TC ---
Today's Communication/Plan
-
Assessment / Plan
Assessment / Plan
NAD
Scleral Anicteric
MMM
No JVD
CTABL
RRR, S1/S2
Soft, NT, ND, BS+
CVA tenderness
Warm, Dry
AAOx3
Calm
Pyelo with known hx of renal transplant, Ucx Ecoli
IVAtb with Ancef with plans to transition to Keflex 500mg QID until 07/06/2025
Bcx and Ucx follow up
IVF
Analgesics
ID rec to continue cefepime
Nephrology consult
-Continue immunosuppressive
--Neph resume cellcept
--Tac level ordered prior to next AM dose though send out
Polycystic kidney disease s/p Renal transplant
Follow with [facility] transplant
Continue cellcept/tac and pred
Neph following
Headache with hx of polycystic kidney disease
Cannot exclude cerebral aneurysm since this is asscoiated with polycystic kdney disease, though les likely and cannot exclude cervicalgia since headache starts from the neck
CTBrain without acute findings
Check MRI brain
Neuro consulted
Tylenol
Warm compress
Increase flexeril to full dose - discussed this with nephrology, okay to use, prn for muscle spasm
Start compazine
Flu/Rsv/Covid neg
HTN
Currently normotensive off of BP meds
GERD
Pepcid
Will reeval at 2pm, if symptoms improved with med changes then plan to dc home otherwise will keep for neuro eval and MRI
Anticipated Discharge: Within 24 hours
Subjective/Interval History
-
Date of Service: June 26, 2025
Seen and examined. No new complaints. No acute overnight events
On going headache, has not been sleeping, nasueaous from the heating pack
Walking arounf the hospital floor without sob or complaints
Objective Data
-
Labs:
Laboratory Results
06/26/25 06/26/25
06:46 06:47
WBC 10.3
Hgb 14.6
Hct 42.4
Plt Count 114 L
Sodium 134 L
Potassium 4.2
Chloride 104
Carbon Dioxide 26
BUN 15
Creatinine 0.9
Glucose 131 H
Calcium 9.1
Vital Signs:
Vital Signs
Temp Pulse Resp BP Pulse Ox
98.4 F 68 22 129/77 95
06/26/25 07:00 06/26/25 07:00 06/26/25 07:00 06/26/25 07:00 06/26/25 07:00
I&O
06/25/25 06/26/25 06/27/25
06:59 06:59 06:59
Intake Total 1680 / 1680
Balance 1680 / 1680
[2025-06-26] MEDS: FLEXERIL 10 MG PO (11:58)
[2025-06-26] MEDS: COMPAZINE 5 MG PO (11:58)
--- NOTE | 2025-06-26 13:21 | CON.NEURO4 ---
Consultation - Neurology 4
-
CONSULTING PHYSICIAN: Dr. David Rodriguez
REFERRING PHYSICIAN: Dr. Adam Hawkins
DICTATED BY: Dr. David Rodriguez
DATE/TIME OF REQUEST: 06/26/2025
DATE/TIME OF CONSULTATION: 06/26/2025
Reason for Consultation: Headache
ASSESSMENT AND PLAN:
The patient is a 55 years old male with a past medical history significant for polycystic kidney disease status post renal transplant. The patient presented with dysuria and associated fever and chills, and was treated for urinary tract infection.
The patient is doing well and is going to be discharged home today. The patient does not have any speech difficulty or any focal weakness. He does not have any sign of meningeal irritation.
Hospital course was complicated by headaches. CT Brain without acute findings. MRI brain without acute findings. Started on flexeril for cervical muscle spasm and the patient says that he is doing well.
Discussed with Dr. Adam Hawkins.
History of Present Illness:
The patient is a 55 years old male with a past medical history significant for polycystic kidney disease status post renal transplant. The patient presented with dysuria and associated fever and chills and was treated for urinary tract infection.
The patient is doing well and is going to be discharged home today.
Past Medical History:
Polycystic kidney disease
HTN
GERD
Review of Systems:
The 10 point review systems were negative aside from as given the above history of present illness.
Neurologic Examination:
Alert and oriented x 3
Speech is clear
The cranial nerves II to XII are grossly intact
The motor strength is grossly 5/5 bilaterally
The sensations are grossly intact
The cerebellar examination does not show limb ataxia.
--- NOTE | 2025-06-26 14:52 | W.DCSUMMARY ---
Discharge Summary
Discharge Data
Date of Admission: 06/24/25
Date of Discharge: 06/26/25
-
Pending Results: No
Hospital Course
55y M with PMH significant for polycystic kidney disease s/p renal transplant
Presented with dysuria and associated fever and chills. CTAP demonstrated findings consistent with pyelonephritis of the transplanted kidney with mild fat stranding adjacent to the proximal ureter, which may be related to ascending urinary tract
infection. Started on cefepime. Evaluated by nephrology and infectious diseases. Urine culture grew ecoli but blood cultures were negative. Infectious diseases chnage iv cefepime to iv ancef with further recommendation to transition to PO keflex
500mg qid until 07/06/2025.
Hospital course was complicated by headaches. CTBrain without acute findings. MRI brain wihtout acute findings. Neuro evaluated. Started on Tylenol 3 x3days and flexeril.
CT also showed fatty liver. Will need outpatient GI follow up
CTAP
IMPRESSION:
1. Findings consistent with autosomal dominant polycystic kidney disease.
2. Right lower quadrant transplant kidney. There is mild fat stranding adjacent to the proximal ureter, which may be related to ascending urinary tract infection. No significant hydronephrosis of the transplanted kidney, and no perinephric fluid
collection.
3. Severe diffuse fatty infiltration of the liver.
Renal ultrasound - Transplant
IMPRESSION:
No shadowing renal calculus or hydronephrosis. No perinephric fluid collection. 7.1 cm renal simple cyst.
Renal vascular parameters as indicated above.
Head CT
IMPRESSION:
1. No CT evidence for acute intracranial hemorrhage.
2. Mild bilateral frontal and parietal lobe volume loss.
3. Mild cerebellar volume loss.
4. Mildly ectatic and very tortuous right intracranial vertebral artery.
Brain MRI
IMPRESSION:
1. No MRI evidence for acute infarct, intracranial hemorrhage, or progressive multifocal leukoencephalopathy.
2. Mild diffuse cerebral and cerebellar volume loss.
3. 2.6 cm arachnoid cyst in the midline of the posterior cranial fossa causing mild mass effect on the left cerebellar hemisphere.
4. Mild to moderate paranasal sinus mucosal disease.
More than 30 minutes spent in discharge including
Final examination of the patient
Summarizing hospital stay
Instructions for continuing care to all relevant caregivers
Preparation of discharge records, prescriptions, and referral forms
Total time spent (in minutes): 33mins
Discharge Plan
-
Patient Disposition: Home (Routine Discharge)
Discharge Diagnosis/Procedures: pyelonephritis on transplant kidney
Condition: Good
Diet: As tolerated
Activity: As tolerated
Activity Restrictions/Additional Instructions:
Presented with dysuria and associated fever and chills. CTAP demonstrated findings consistent with pyelonephritis of the transplanted kidney with mild fat stranding adjacent to the proximal ureter, which may be related to ascending urinary tract
infection. Started on cefepime. Evaluated by nephrology and infectious diseases. Urine culture grew ecoli but blood cultures were negative. Infectious diseases chnage iv cefepime to iv ancef with further recommendation to transition to PO keflex
500mg qid until 07/06/2025.
Hospital course was complicated by headaches. CTBrain without acute findings. MRI brain wihtout acute findings. Neuro evaluated. Started on Tylenol 3 x3days and flexeril.
CT also showed fatty liver. Will need outpatient GI follow up
CTAP
IMPRESSION:
1. Findings consistent with autosomal dominant polycystic kidney disease.
2. Right lower quadrant transplant kidney. There is mild fat stranding adjacent to the proximal ureter, which may be related to ascending urinary tract infection. No significant hydronephrosis of the transplanted kidney, and no perinephric fluid
collection.
3. Severe diffuse fatty infiltration of the liver.
Renal ultrasound - Transplant
IMPRESSION:
No shadowing renal calculus or hydronephrosis. No perinephric fluid collection. 7.1 cm renal simple cyst.
Renal vascular parameters as indicated above.
Head CT
IMPRESSION:
1. No CT evidence for acute intracranial hemorrhage.
2. Mild bilateral frontal and parietal lobe volume loss.
3. Mild cerebellar volume loss.
4. Mildly ectatic and very tortuous right intracranial vertebral artery.
Brain MRI
IMPRESSION:
1. No MRI evidence for acute infarct, intracranial hemorrhage, or progressive multifocal leukoencephalopathy.
2. Mild diffuse cerebral and cerebellar volume loss.
3. 2.6 cm arachnoid cyst in the midline of the posterior cranial fossa causing mild mass effect on the left cerebellar hemisphere.
4. Mild to moderate paranasal sinus mucosal disease.
Referrals:
UNKNOWN - PT NOT,INTERVIEWE [Family Provider]
Prescriptions:
New
famotidine 20 mg Tablet
20 mg PO BID Qty: 20 0RF
acetaminophen-codeine 300-30 mg tablet
1 tab PO Q8H PRN (Reason: Pain/headache) Qty: 14 0RF
cephalexin 500 mg capsule
500 mg PO QID 11 Days Qty: 44 0RF
cyclobenzaprine 5 mg tablet
2.5 mg PO TID PRN (Reason: muscle spasm) Qty: 14 0RF
Continued
atorvastatin 10 MG tablet
40 mg PO HS
metoprolol tartrate 100 MG tablet
50 mg PO BID
prednisone 5 MG tablet
5 mg PO DAILY
amlodipine 10 MG tablet
10 mg PO DAILY
aspirin 81 MG tablet,chewable
81 mg PO DAILY
tacrolimus 1 MG capsule
1 mg PO BID
mycophenolate mofetil 250 mg Capsule
500 mg PO Q12H
Discharge Orders:
Discharge Patient (As Directed); Ordered 06/26/25
Ordered By: Adam Hawkins
Discharge Date and Time
Print Language: MONGOLIAN
[2025-06-26 15:00] VITALS: BP 126/68
--- NOTE | 2025-06-26 15:50 | CM ---
Discharge to home; no needs; has transport home
== END 2025-06-26 16:36 | disposition home or self-care (01) | DRG 699 ==
LOC: 2 NORTH 02:04
PROVIDERS: ADMITTING PHYSICIAN Hospitalist; ATTENDING PHYSICIAN Hospitalist; CONSULT PHYSICIAN Internal Medicine Infectious Disease; CONSULT PHYSICIAN Psychiatry & Neurology Neurology; CONSULT PHYSICIAN Specialist; EMERGENCY PHYSICIAN Emergency Medicine
DX: T86.13 Kidney transplant infection (principal); D84.821 Immunodeficiency due to drugs; N12 Tubulo-interstitial nephritis, not specified as acute or chronic; Q61.2 Polycystic kidney, adult type; E87.1 Hypo-osmolality and hyponatremia; Y83.0 Surgical operation with transplant of whole organ as the cause of abnormal reaction of the patient, or of later complication, without mention of misadventure at the time of the procedure; K76.0 Fatty (change of) liver, not elsewhere classified; K21.9 Gastro-esophageal reflux disease without esophagitis; I10 Essential (primary) hypertension; Z87.891 Personal history of nicotine dependence; Z79.82 Long term (current) use of aspirin; Z79.624 Long term (current) use of inhibitors of nucleotide synthesis; E78.5 Hyperlipidemia, unspecified; Z86.16 Personal history of COVID-19; Z79.899 Other long term (current) drug therapy; G93.0 Cerebral cysts; Z11.52 Encounter for screening for COVID-19
CPT/HCPCS: 70450; 70551; 71046; 74176; 76776; 80048; 80053; 80197; 81003; 81015; 82607; 82746; 83605; 85025; 85027; 86803; 87040; 87071; 87086; 87186; 87502; 87807; 87811; 93005; 96361; 96374; 96375; 96376; 99291